=== PATIENT | female | born 1975 | race Hispanic/Latino ===

== ENCOUNTER 2024-07-08 14:41 | Emergency (ER) | payer SELFPAY ==
--- NOTE | ~2024-07-08 | US_ITS ---
US abdomen limited DATE: 07/08/2024 17:12 INDICATION: Right upper quadrant abdominal pain radiating to back TECHNIQUE: Real-time imaging of the liver, pancreas, gallbladder COMPARISON: None FINDINGS: No hepatic or pancreatic space-occupying mass lesion. Normal hepatopedal portal venous flow direction. No gallstones or gallbladder wall thickening or pericholecystic fluid collection. Negative sonographi c Fischer sign. The common bile duct measures 3.3 mm, normal. IMPRESSION: Negative Reviewed, dictated and finalized at [facility] Reviewed, dictated and finalized at [facility]. IMPRESSION: Negative
[2024-07-08 14:43] VITALS: BP 146/54; PULSE 95; RESP 17; TEMP 36.3; O2SAT 100
[2024-07-08 15:03] LABS: BEDSIDEPREGUCG Negative (Negative)
[2024-07-08 15:07] LABS: Basophils Percent Auto 0.3 % (0.2-1.2); Eosinophils Absolute Auto 0.3 K/mm3 (0-0.3); Eosinophils Percent Auto 3.1 % (0-4.4); Hematocrit 29.2 % (37.0-47.0); Hemoglobin 7.5 g/dL (12.0-15.0); Immature Granulocyte Absolute 0.05 K/mm3 (0.00-0.031); Immature Granulocyte Percent A 0.6 % (0-0.5); Immature Platelet Fraction Pct 7.6 % (0.9-11.2); Lymphocytes Absolute Auto 1.97 K/mm3 (0.9-3.2); Lymphocytes Percent Auto 22.5 % (18.3-44.2); Mean Corpuscular HGB Conc 25.7 g/dl (32-36); Mean Corpuscular Hemoglobin 17.2 pg (26-34); Mean Platelet Volume 10.7 fl (7.4-10.4); Monocytes Absolute Auto 0.6 K/mm3 (0.1-0.6); Monocytes Percent Auto 6.8 % (2.6-8.5); Neutrophils Absolute Auto 5.8 K/mm3 (1.3-6.7); Neutrophils Percent Auto 66.7 % (45.5-73.1); Nucleated Red Blood Cells Perc 0.2 % (0.0-0.2); Platelet Count Result 215 k/mm3 (150-375); Red Blood Count 4.36 M/mm3 (4.2-5.4); Red Cell Distribution Width 19.9 % (11.5-14.5); White Blood Count 8.8 K/mm3 (4.5-10.0)
[2024-07-08 15:09] LABS: Add Urine Microscopic? NO; Appearance Urine Clear (Clear); Bilirubin Urine Negative (Negative); Blood Urine Negative (Negative); Color Urine Yellow (Yellow); Glucose Urine UA Negative (Negative); Ketones Urine Negative (Negative); Leukocyte Esterase Ur Negative LEU/UL (Negative); Nitrate Urine Negative (Negative); Protein Urine Negative (Negative); Specific Grav Ur 1.013 (1.001-1.035); Urobilinogen Urine 0.2 mg/dL (<2.0)
[2024-07-08 15:20] LABS: Alanine Aminotransferase 22 U/L (6-35); Albumin Level 4.4 g/dL (3.5-5.1); Alkaline Phosphatase 70 U/L (38-126); Anion Gap 13 mmol/L (4-12); Aspartate Amino Transferase 31 U/L (14-36); Bilirubin,Total 0.8 mg/dL (0.2-1.3); Blood Urea Nitrogen 7 mg/dL (7-17); Calcium 8.7 mg/dL (8.4-10.2); Carbon Dioxide 22 mmol/L (22-30); Chloride 102 mmol/L (98-107); Estimated Glomerular Filt Rate > 60; Glucose 125 mg/dL (65-110); Lipase 70 U/L (23-300); Potassium 3.8 mmol/L (3.4-5.0); Sodium 137 mmol/L (137-145)
[2024-07-08 15:30] LABS: Anisocytosis 2+; Microcytosis 2+ (NORMAL); Platelet Estimate Adequate (Adequate); Schistocytes None Seen
--- NOTE | 2024-07-08 16:42 | ED.ABDPAIN ---
HPI - Abdominal Pain General Chief Complaint: Abdominal Pain Stated Complaint: right flank pain Time Seen by Provider: 07/08/24 16:36 Source: patient Mode of arrival: ambulatory Limitations: no limitations History of Present Illness HPI narrative: patient presents with complaint of right upper quadrant pain radiating to her back/right flank. She denies any nausea or vomiting. Symptoms have been present Wednesday. She notes that they are worse with spicy food or fried food. She has a history of a knee which has never required blood transfusions but for which she had previously received iron infusions. Last bowel movement was this morning she denies any diarrhea bleeding, or constipation. She denies any vaginal bleeding other than her last menstrual period which occurred June 20, 2024. (only 5 living children currently as one at 2 years old due to heart issue). States she had 2 of her children at 7 1/2 mos gestational age and the other at 8 months gestational age. Related Data Allergies Allergy/AdvReac Type Severity Reaction Status Date / Time No Known Allergies Allergy Verified 07/08/24 14:45 [facility] Past Medical History Medical History (Updated 07/09/24 @ 09:11 by Marie Manzanares MD) Grand multipara 6 births, 5 living children Multigravida 8 Family History Family History Unknown , at 2 years old Cardiac anomaly, congenital Exam Narrative: GENERAL: Well-appearing, well-nourished, and in no acute distress. HEAD: Normocephalic, atraumatic. EYES: Non injected, non icteric ENT: Nares clear, no rhinorrhea or epistaxis. NECK: Supple. CHEST: Speaking in full sentences. No respiratory distress. HEART: Regular rate and rhythm. . ABDOMEN: Soft, nondistended. No tenderness to palpation. No rigidity or guarding. Not peritoneal. Fischer sign negative. EXTREMITIES: Normal range of motion. No lower extremity edema. SKIN: Warm, dry, no rash. NEURO: No focal deficits. Alert and oriented x3. PSYCH: Normal mood and affect. Course Vital Signs Vital signs: Vital Signs Temperature 97.4 F L 07/08/24 14:43 Pulse Rate 95 07/08/24 14:43 Respiratory Rate 17 07/08/24 14:43 Blood Pressure 146/54 H 07/08/24 14:43 Pulse Oximetry 100 07/08/24 14:43 Oxygen Delivery Room Air 07/08/24 14:43 Temperature 98.3 F 07/08/24 19:56 Pulse Rate 99 07/08/24 19:56 Respiratory Rate 18 07/08/24 19:56 Blood Pressure 125/60 07/08/24 19:56 Pulse Oximetry 100 07/08/24 19:56 Oxygen Delivery Room Air 07/08/24 14:43 MDM - Abdominal Pain MDM Narrative Medical decision making narrative: Patient presents with right upper quadrant pain since Wednesday that radiates to her back/right flank. In the emergency department she is afebrile with vital signs notable mildly elevated systolic and mildly decreased diastolic blood pressure however acceptable. test negative. Microcytic anemia, no prior for comparison although she does state she has a history of anemia requiring iron infusions. Received notification from nurse that patient is pain free. Will discharge. workup had otherwise been unremarkable. Symptoms suggest either gastritis or biliary colic. Differential Diagnosis Differential diagnosis: Likely abdominal pain, calculus of kidney, constipation, endometriosis, pancreatitis and other ( Biliary etiology, gastritis, GERD) Lab Data Attestation: I reviewed the patient's lab results. 07/08/24 14:50 07/08/24 14:50 Labs: Lab Results 07/08/24 07/08/24 07/08/24 Range/Units 14:50 14:59 15:01 WBC 8.8 (4.5-10.0) K/mm3 RBC 4.36 (4.2-5.4) M/mm3 Hgb 7.5 L (12.0-15.0) g/dL Hct 29.2 L (37.0-47.0) % MCV 67.0 L (80-100) fl MCH 17.2 L (26-34) pg MCHC 25.7 L (32-36) g/dl RDW 19.9 H (11.5-14.5) % Plt Count 215 (150-375) k/mm3 MPV 10.7 H (
[2024-07-08 16:45] VITALS: BP 147/76; PULSE 108; RESP 20; O2SAT 100
[2024-07-08 16:46] VITALS: BP 152/72; PULSE 108; RESP 15; O2SAT 99
[2024-07-08] MEDS: SODIUM CHLORIDE 0.9% IV 1,000 ML 999 ML IV CONT (17:04)
[2024-07-08 17:31] VITALS: BP 129/56; PULSE 102; RESP 17; O2SAT 100
[2024-07-08 19:22] VITALS: BP 132/64; PULSE 102; RESP 19; O2SAT 99
[2024-07-08] MEDS: FAMOTIDINE 20 MG/2 ML VIAL IV PUSH (19:34)
[2024-07-08 19:56] VITALS: BP 125/60; PULSE 99; RESP 18; TEMP 36.8; O2SAT 100
== END 2024-07-08 19:58 | disposition home or self-care (01) ==
PROVIDERS: Student in an Organized Health Care Education/Training Program; Emergency Provider Student in an Organized Health Care Education/Training Program
DX: R10.11 Right upper quadrant pain (principal); D50.9 Iron deficiency anemia, unspecified
CPT/HCPCS: 36415; 76705; 80053; 81003; 81025; 83690; 85025; 85055; 96361; 96374; 99284; J7030

== ENCOUNTER 2025-08-03 14:30 | Emergency (ER) | payer SELFPAY ==
--- NOTE | ~2025-08-03 | XR_ITS ---
EXAMINATION: XR chest 2V DATE: 08/03/2025 14:55 INDICATION: Shortness of breath, mid chest pain and weakness TECHNIQUE: PA and lateral views of the chest were obtained. COMPARISON: None FINDINGS: The lungs are clear with no focal airspace opacities, pulmonary edema, pleural effusion or pneumothorax. The cardiomediastinal silhouette is normal. Mild thoracic spondylosis. IMPRESSION: 1. No acute cardiopulmonary disease. Reviewed, dictated and finalized at location A.
--- OUTSIDE RECORDS SUMMARY | 2025-08-03 09:00 | XMS_ITS | Encounter Summary ---
Author Organization [employer] Address [address], [place] [address] Phone Care Team Providers Care Extrusion Operator Name Role Phone Temo Waterman MD Primary Care Provider [phone]- [phone] Encounter Details Date Type Department Care Team (Late st Contact Info) Description 08/03/2025 9:00 AM CDT Office Visit [facility] Medicine [address] [place] [address] Temo Waterman MD [address] [place] [address] Routine general medical examination at a health care facility (Primary Dx) Social History Tobacco Use Types Packs/Day Years Used Date Smoking Tobacco: Never Smokeless Tobacco: Never Alcohol Use Standard Drinks/Week Comments Never 0 (1 standard drink = 0.6 oz pur e alcohol) PHQ-9 Answer Date Recorded Patient Health Questionnaire-9 Score 8 04/27/2025 Intimate Partner Violence Answer Date R ecorded Do you feel physically and e motionally safe where you currently live? Yes 01/23/2025 In the past year, have you b een afraid of your partner or ex-partner? No 01/23/2025 Social Connections Answer Date Recorded How often do you seek or roderick k to people that you care about and feel close to? (For example: talking to friends on the phone, visiting friends or family, going to orthodox or club meetings) 5 or more times a week 01/23/2025 Financial Resource Strain Answer Date R ecorded Income % of Federal Poverty Line (FPL) 100% or b elow 01/23/2025 What is the highest level of school that you have finished? Less than high school degree 01/23/2025 What is your current work situation? Unemployed 01/23/2025 What is your main insurance? None/uninsured Unable to get: Utilities Yes 025 Unable to get: Medicine or [facility] [place] [facility] (Medical, Dental, Mental Health, Vision) No 01/23/2025 Unable to get: Phone No 01/23/2025 Unable to get: Clothing No 01/24/20 Unable to get: career center advisor No 2024 Unable to get: Other No 01/23/2025 Stress Answer Date Recorded Stress is when someone feels tense, nervous, anxious or can't sleep at night because their mind is troubled. How stressed are you? (If risk for stress identified, consider performing ALYCE-7 in Screenings activity) Not at all 03/08/2025 Food Insecurity Answer Date Recorded Unable to get: Food No 01/23/2025 Transportation Needs Answer Date Record ed Has lack of transportation k ept you from medical appointments, meetings, work, or from getting things needed for daily living? Check all that apply. No 01/23/2025 Housing Stability Answer Date Recorded What is your housing situation today? I have ricarda sing 01/23/2025 Are you worried about losing your housing? No 01/23/2025 Comments Unknown Sex and Gender Information Value Date Recorded Sex Assigned at Female 12/04/2022 12:10 PM EST Legal Sex Female 4:03 PM EDT Gender Identity Female 08/02/2022 4:03 PM EDT Sexual Orientation Straight 08/02/2022 4: 03 PM EDT documented as of this encounter Last Filed Vital Signs Vital Sign Reading Time Taken Comments Blood Pressure 131/75 08/03/2025 9:37 AM CDT Pulse 84 08/03/2025 9:37 AM CDT Temperature 36.5 C (97.7 F) 08/03/2025 9:37 AM CDT Respiratory Rate - - Oxygen Saturation 100% 08/03/2025 9:37 AM CDT Inhaled Oxygen Concentration - - Weight 83.3 kg (183 lb 9.6 oz) 08/03/2025 9:37 A M CDT Height 149.9 cm (4' 11) 08/03/2025 9:37 AM CDT Body Mass Index 37.08 08/03/2025 9:37 AM CDT documented in this encounter Plan of Treatment Upcoming Encounters Date Type Department Care Team (Late st Contact Info) Description 08/22/2025 8:30 AM CDT Office Visit [facility] Family Medicine [address] [place] [address] Temo Waterman MD [address] [place], [place] [id number] 09/12/2025 3:30 PM OUTDOOR POWER EQUIPMENT MECHANIC Office Visit [facility] [address] [place] [address] Israel Medina Jr., MD [address] [place], [place] [id number] documented as of this encounter Procedures Procedure Name Priority Date/Time Associated Diagnosis Comments POCT HEMOGLOBIN A1C Routine 08/03/2025 9 :39 AM CDT Routine general medical examination at a health care facility POCT HEMOGLOBIN Routine 08/03/2025 9:39 AM CDT Routine general medical examination at a health care facility documented in this encounter Results * POCT Hemoglobin (08/03/2025 9:39 AM CDT) Hemoglobin, Capillary 6.0 11.7 - 15.5 g/dL Blood 08/03/2025 9:39 AM CDT Kateryna Jacobo MD POINT OF CARE TEST ENTER /EDIT ORDERABLES Final Result * POCT HEMOGLOBIN A1C Manually Resulted (08/03/2025 9:39 AM CDT) HEMOGLOBIN A1C 4.8 <=5.8 % Blood Venous blood specimen / Unknown 08/03/2025 9:39 AM CDT aKteryna Jacobo MD POINT OF CARE TEST ENTER /EDIT ORDERABLES Final Result documented in this encounter Visit Diagnoses Diagnosis Routine general medical examination at a health care facility- Primary documented in this encounter Additional Health Concerns Assessment Noted Time PHQ-9 Depression Total Score: 8 04/27/20 9:28 AM EDT documented as of this encounter Care Teams Extrusion Operator Relationship Specialty Start Date End Date Temo Waterman MD [address] [place] [address] PCP - General 04/30/25 documented as of this encounter
--- OUTSIDE RECORDS SUMMARY | 2025-08-03 09:00 | XMS_ITS | Encounter Summary ---
Author Organization [employer] Address [address], [place] [address] Phone Care Team Providers Care Window Shade Cutter Name Role Phone Temo Waterman MD Primary Care Provider [phone]- [phone] Encounter Details Date Type Department Care Team (Late st Contact Info) Description 08/03/2025 9:00 AM CDT Office Visit [facility] Medicine [address] [place] [address] Temo Waterman MD [address] [place] [address] Routine general medical examination at [...] phone, visiting friends or family, going to yarsanism or club meetings) 5 or more times [...] 025 Unable to get: Medicine or [place] [facility] (Medical, Dental, Mental Health, Vision) No 01/23/2025 Unable to get: Phone No 01/23/2025 Unable to get: Clothing No 01/24/20 Unable to get: medicare nurse No 2024 Unable to get: Other No [...] Description 08/22/2025 8:30 AM CDT Office Visit [facility] Family Medicine [address] [place] [address] Temo Waterman MD [address] [place], [place] [phone] 09/12/2025 3:30 PM TEACHER SPECIALIST Office Visit [facility] [address] [place] [address] Israel Medina Jr., MD [address] [place], [place] [phone] documented as of this encounter Procedures Procedure [...] specimen / Unknown 08/03/2025 9:39 AM CDT Kateryna Jacobo MD POINT OF CARE TEST ENTER /EDIT ORDERABLES Final Result documented in this encounter Visit Diagnoses Diagnosis Routine general medical examination at a health care facility- Primary documented in this encounter Additional Health Concerns Assessment Noted Time PHQ-9 Depression Total Score: 8 04/27/20 9:28 AM EDT documented as of this encounter Care Teams Window Shade Cutter Relationship Specialty Start Date End Date Temo Waterman MD [address] [place] [address] PCP - General 04/30/25 documented as of this encounter
[2025-08-03 14:31] VITALS: BP 142/58; PULSE 91; RESP 18; TEMP 36.4; O2SAT 100
--- OUTSIDE RECORDS SUMMARY | 2025-08-03 14:33 | XMS_ITS | Encounter Summary ---
Author Organization [employer] Address [address] [address] Phone Care Team Providers Care Painter And Paperhanger Apprentice Name Role Phone Temo Waterman MD Primary Care Provider [phone] Encounter Details Date Type Department Care Team (Latest Contact Info) Description 08/03/2025 Travel Social History Tobacco Use Types Packs/Day Years [...] phone, visiting friends or family, going to zoroastrianism or club meetings) 5 or more times [...] 025 Unable to get: Medicine or [place] [facility] (Medical, Dental, Mental Health, Vision) No 01/23/2025 Unable to get: Phone No 01/23/2025 Unable to get: Clothing No 01/24/20 Unable to get: insurance healthcare representative No 2024 Unable to get: Other No [...] PM EDT documented as of this encounter Plan of Treatment Upcoming Encounters Date Type Department Care Team (Late st Contact Info) Description 08/22/2025 8:30 AM CDT Office Visit [facility] Family Medicine [address] [place] [address] Temo Waterman MD [address] [place] [address] 09/12/2025 3:30 PM SENIOR ENVIRONMENTAL TECHNICIAN Office Visit [facility] [address] Israel Medina Jr., MD [facility] [place], [place] [phone] documented as of this encounter Visit Diagnoses Not on filedocumented in this encounter Additional Health Concerns Assessment Noted Time PHQ-9 Depression Total Score: 8 04/27/20 25 9:28 AM EDT documented as of this encounter Care Teams Painter And Paperhanger Apprentice Relationship Specialty Start Date End Date Temo Waterman MD [address] [place] [address] PCP - General 04/30/25 documented as of this encounter
--- OUTSIDE RECORDS SUMMARY | 2025-08-03 14:33 | XMS_ITS | Encounter Summary ---
Author Organization [employer] Address [address], [place] [address] Phone Care Team Providers Care Dog Trainer Name Role Phone Temo Waterman MD Primary Care Provider [phone]- [phone] Reason for Visit * Reason Comments Med Refill Encounter Details Date Type Department Care Team (Late st Contact Info) Description 08/03/[address] [facility] Medicine [address] [place] [address] Shala Neves MD [address] [place] [address] Social History Tobacco Use Types Packs/Day Years [...] phone, visiting friends or family, going to rastafari or club meetings) 5 or more times [...] 025 Unable to get: Medicine or [facility] [place] [facility] (Medical, Dental, Mental Health, Vision) No 01/23/2025 Unable to get: Phone No 01/23/2025 Unable to get: Clothing No 01/24/20 Unable to get: pharmacy customer care specialist No 2024 Unable to get: Other No [...] Description 08/22/2025 8:30 AM CDT Office Visit [facility] Family Medicine [address] [facility] [place] [place] [id number] Temo Waterman MD [address] [place] [address] 09/12/2025 3:30 PM MIXING PLANT DUMPER Office Visit [facility] [address] [facility] [place] [place] [address] Israel Medina Jr., MD [address] [place] [address] documented as of this encounter Visit Diagnoses Not on filedocumented in this encounter Additional Health Concerns Assessment Noted Time PHQ-9 Depression Total Score: 8 04/27/20 9:28 AM EDT documented as of this encounter Care Teams Dog Trainer Relationship Specialty Start Date End Date Temo Waterman MD [address] [place] [address] PCP - General 04/30/25 documented as of this encounter
--- OUTSIDE RECORDS SUMMARY | 2025-08-03 14:33 | XMS_ITS | Clinical Summary ---
Author Organization [employer] Address [address] [place] [address] Phone Care Team Providers Care Shell Mold Bonder Name Role Phone Temo Waterman MD Primary Care Provider Allergies No known active allergies Medications COVID-19 Home Collection Test kitIndications:At increased risk of exposure to COVID-19 virus As directed 3 kit 4 Active famotidine (Pepcid) 20 MG tabletIndications:G astroesophageal reflux disease without esophagitis Take 1 tablet (20 mg) by mouth if needed in the morning and at bedtime for heartburn. 60 tablet 5 4 Active pantoprazole (ProtoNix) 40 MG EC tabletIndications:G astroesophageal reflux disease, unspecified whether esophagitis present Take 1 tablet (40 mg) by mouth in the morning. Do not crush, chew, or split. 30 tablet 1 5 Active iron polysaccharides (Poly-Iron 150) 150 MG capsuleIndications: Iron deficiency anemia due to chronic blood loss Take 1 capsule (150 mg) by mouth in the morning. 30 capsule 11 5 Active norethindrone (Aygestin) 5 MG tablet Take 1 tablet (5 mg) by mouth 2 times daily. 60 tablet 1 5 026 Active Diclofenac Sodium 1 % gel Apply 1 g topically if needed in the morning and at bedtime (elbow and shoulder pain). 120 g 1 5 Active Active Problems Problem Noted Date Diagnosed Date Intramural and subserous leiomyoma of uterus 04/ Essential hypertension 02/14/2024 Overview (02/14/2024): Elevated pressure 02/14/24. Assessment & Plan (05/15/2024 2:40 PM CDT): Bp at home has been normal on her home monitor. It rises when she is nervous Assessment & Plan (02/14/2024 4:30 PM CDT): Will get home pressures and consider treatment if high at home. She has a machine. Sciatica of left side 04/27/2023 Assessment & Plan (04/27/2023 9:54 AM CDT): Discussed diagnosis. Given sheet on back exercises. Anxiety and depression 09/08/2022 Assessment & Plan (09/08/2022 11:31 AM TOLL GATE TENDER): Seeing therapist at [facility]. Declines medication or bh at [facility]. Ovarian neoplasm 03/23/2022 Overview (08/27/2022): Note: pelvic ultrasound 03/05/22 [place] with 5.5 x 2.2 x 3.3. 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 Screening for condition 07/29/2021 Overview (08/03/2023): Mammogram normal on 01-06-2023 [facility] garcia. pap 04/2019. due 04/2022 Due for hepatitis B, flu, covid (declines) Assessment & Plan (07/17/2024 3:33 PM CDT): Declines vaccines Assessment & Plan (07/11/2024 3:15 PM CDT): Pap Declines vaccines Assessment & Plan (05/15/2024 2:42 PM CDT): Due for pap, mammogram Assessment & Plan (08/03/2023 10:21 AM CDT): Due for hepatitis B, flu, covid (declines for now) Contraceptive surveillance 03/01/2018 Overview (08/27/2022): Note: Unchanged - BTL. Liletta placed 03/01/2018 for heavy menses, expelled 06/28/18. Menorrhagia same over the past few years. 2021: sprintec did not help heavy menses Iron deficiency 12/30/2017 Overview (08/27/2022): Note: Unchanged - 2/2 heavy menses. Required iv iron 04/2022 Assessment & Plan (09/08/2022 11:22 AM TOLL GATE TENDER): hgb down to 8 on 09/08/22. Constipation 04/08/2017 Overview (08/27/2022): Note: Unchanged Disorder of esophagus 04/08/2017 Overview (08/27/2022): Note: Unchanged - pantoprazole caused stomach pains. Obesity 04/08/2017 Overview (08/27/2022): Note: Unchanged Resolved Problems Problem Noted Date Diagnosed Date Resolved Date Disease due to severe acute respiratory syndrome coronavirus 2 (SARS-CoV-2) 01/20/2022 11/0 06/2022 Overview (08/27/2022): Note: 11/2021 Coronary artery disease 06/10/201701/30 Overview (08/27/2022): Note: Unchanged - questionable NSTEMI. [facility] without obstructive disease. Troponin 1.35 but patient says that they never took her blood and that this was from a different patient. Cardiac cath showed no obstructive disease. 05/2017. Completed Plavix x 1 year. Patient believes that her blood in the ER was never actually taken to the lab and the elevated troponin was from a different patient. She has subsequently had similar problems reolved with antacid medication. SPECT stress test 03/20/22 [place] without evidence of AL or ischemia. EF 76%. Encounters Date Type Department Care Team Description 08/03/2025 9:00 AM CDT Office Visit [address] [phone] Temo Waterman MD Routine general medical examination at a health care facility (Primary Dx) 08/03/[address] [phone] Shala Neves MD 08/03/2025 Travel 06/04/[address] [phone] Quyen Hilario RN 06/04/[address] [phone] Other, Encounters Med Refill from Last 3 Months Immunizations Immunization Administration Dates Next Due Influenza, Unspecified 08/26/2017 Influenza, injectable, quadr ivalent, contains preservative 09/08/2021,07/02/2020,08/01/2019 Influenza, injectable, quadr ivalent, preservative free 09/08/2021 Influenza, intradermal, quad rivalent, preservative free, injectable 08/26/2017 TD (adult), 2 Lf tetanus tox oid, preservative free, adsorbed 07/02/2014 Tdap 10/01/2012 Family History Medical History Relation Name Comments Diabetes type II Maternal Grandmother Anxiety disorder Mother Osteoporosis Mother Relation Name Status Comments Maternal Grandmother Mother Social History Tobacco Use Types Packs/Day Years Used Date Smoking Tobacco: Never Smokeless Tobacco: Never Tobacco Cessation:Counseling Given: Not Answered Alcohol Use Standard Drinks/Week Comments Never 0 [...] phone, visiting friends or family, going to mu-ism or club meetings) 5 or more times [...] 025 Unable to get: Medicine or A or Health Care (Medical, Dental, Mental Health, Vision) No 01/23/2025 Unable to get: Phone No 01/23/2025 Unable to get: Clothing No 01/24/20 25 Unable to get: career discovery teacher No 2024 Unable to get: Other No [...] your housing situation today? I have ricarda jane 01/23/2025 Are you worried about losing your housing? No 01/23/2025 Comments Unknown Sex and Gender Information Value Date Recorded Sex Assigned at Female 12/04/2022 12:10 PM EST Legal Sex Female 4:03 PM EDT Gender Identity Female 08/02/2022 4:03 PM EDT Sexual Orientation Straight 08/02/2022 4: 03 PM EDT Last Filed Vital Signs Vital Sign Reading [...] Mass Index 37.08 08/03/2025 9:37 AM CDT Plan of Treatment Upcoming Encounters Date Type Department Care Team (Late st Contact Info) Description 08/22/2025 8:30 AM CDT Office Visit [facility] [address] [place] [phone] Temo Waterman MD [address] [place], [place] [id number] 09/12/2025 3:30 PM TOLL GATE TENDER Office Visit [facility] [address] [place] [phone] Israel Medina Jr., MD [address] [place] [address] Health Maintenance Due Date Last Done Comments MMR Vaccines (1 of 1 - Standard series) 1978 Hepatitis B Screening 1995 Hepatitis C Screening 1995 Well Adult Exam (Age 18+ Annual Physical) 1995 Hepatitis B Vaccines (1 of 3 - 19+ 3-dose series) 02/12/1996 DTaP/Tdap/Td Vaccines (3 - Td or Tdap) 12/30/2014 07/02/2014, 10/01/2012 Pap Smear 04/29/2020 04/29/2017 CT Colonography 2022 Colonoscopy 2022 FIT 2022 FOBT 2022 Sigmoidoscopy 2022 Cervical Cancer Screening 04/29/2022 HPV/Cotest 04/29/2022 04/29/2017 Mammogram 01/07/2024 01/06/2023, 03/0 06/2023, 01/06/2023, Additional history exists COVID-19 Vaccine ( - season) 2025 Influenza Vaccine (#1) 2025 , 09/08/2021, 07/02/2020, Additional history exists Zoster Vaccines (1 of 2) 2027 Colorectal Cancer Screening 02/27/2028 FIT-DNA 02/27/2028 02/26/2025, 02/26/2025 Diabetes Screening 08/03/2028 08/03/2025, 0 01/09/2025, 05/15/2024, Additional history exists HIV Screening Completed 02/14/2024 HIB Vaccines Aged Out No longer eligi ble based on patient's age to complete this topic HPV Vaccines (No Doses Required) Completed Hepatitis A Vaccines Aged Out No long er eligible based on patient's age to complete this topic IPV Vaccines Aged Out No longer eligi ble based on patient's age to complete this topic Meningococcal B Vaccine Aged Out No l onger eligible based on patient's age to complete this topic Meningococcal Vaccine Aged Out No gurwinder imta eligible based on patient's age to complete this topic Pneumococcal Vaccine: 0-49 Years Aged Out No longer eligible based on patient's age to complete this topic Rotavirus Vaccines Aged Out No longer eligible based on patient's age to complete this topic Procedures Procedure Name Priority Date/Time Associated Diagnosis Comments POCT HEMOGLOBIN Routine 08/03/2025 9:39 AM CDT Routine general medical examination at a health care facility POCT HEMOGLOBIN A1C Routine 08/03/2025 9 :39 AM CDT Routine general medical examination at a health care facility LAB COLOGUARD COLON CANCER SCREEN Routine 02/26/2025 12:10 PM CDT Encounter for screening for malignant neoplasm of colon POCT RAPID HIV Routine 02/14/2024 3:35 PM CDT Screening for HIV (human immunodeficiency virus) HM MAMMOGRAPHY Routine 01/07/2021 11:00 PM TOLL GATE TENDER HPV RNA, HR E6/E7, TMA Routine 04/29/2017 12:17 PM CDT THINPREP TIS PAP Routine 04/29/2017 12:1 7 PM CDT from Last 3 Months or Most Recently Relevant to Health Maintenance Results * POCT HEMOGLOBIN A1C Manually Resulted (08/03/2025 9:39 AM CDT) HEMOGLOBIN A1C 4.8 <=5.8 % Blood Venous blood specimen / Unknown 08/03/2025 9:39 AM CDT Kateryna Jacobo MD POINT OF CARE TEST ENTER /EDIT ORDERABLES Final Result * POCT Hemoglobin (08/03/2025 9:39 AM CDT) Hemoglobin, Capillary 6.0 11.7 - 15.5 g/dL Blood 08/03/2025 9:39 AM CDT us Kateryna Jacobo MD POINT OF CARE TEST ENTER /EDIT ORDERABLES Final Result * Cologuard?? colon cancer screening (02/26/2025 12:10 PM CDT) COLOGUARD RESULT Negative Negative 03/02/20 5:43 AM CDT [employer] [facility] (CLIA #:[id number]) Comment: The Cologuard (TM) test was performed on this specimen. NEGATIVE TEST RESULT. A negative Cologuard result indicates a low likelihood that a colorectal cancer (CRC) or advanced adenoma (adenomatous polyps with more advanced pre-malignant features) is present. The chance that a person with a negative Cologuard test has a colorectal cancer is less than 1 in 1500 (negative predictive value >99.9%) or has an advanced adenoma is less than 5.3% (negative predictive value 94.7%). These data are based on a prospective cross-sectional study of 10,000 individuals at average risk for colorectal cancer who were screened with both Cologuard and colonoscopy. (Elliot Mims. et al, N Engl J Med 2014;370(14):1286- 1297) The normal value (reference range) for this assay is negative. COLOGUARD RE-SCREENING RECOMMENDATION: Periodic colorectal cancer screening is an important part of preventive healthcare for asymptomatic individuals at average risk for colorectal cancer. Following a negative Cologuard result, the [employer] and U.S. Multi-Society Task Force screening guidelines recommend a Cologuard re-screening interval of 3 years. References: [employer] Guideline for Colorectal Cancer Screening: https://www.cancer.org/cancer/ynsgp-olxmxk-rnjaaw/occyypyzv-jaiemamup-ekzsavn/ac s-rec ommendations.html.; Jayden BARILLAS, Isidoro CHARLES, Monica BeckK, Colorectal Cancer Screening: Recommendations for Physicians and Patients from the U.S. Multi-Society Task Force on Colorectal Cancer Screening , Am J Gastroenterology 2017; 112:6803-2294. TEST DESCRIPTION: Composite algorithmic analysis of stool DNA-biomarkers with hemoglobin immunoassay. Quantitative values of individual biomarkers are not reportable and are not associated with individual biomarker result reference ranges. Cologuard is intended for colorectal cancer screening of adults of either sex, 45 years or older, who are at average-risk for colorectal cancer (CRC). Cologuard has been approved for use by the U.S. FDA. The performance of Cologuard was established in a cross sectional study of average-risk adults aged 50-84. Cologuard performance in patients ages 45 to 49 years was estimated by sub-group analysis of near-age groups. Colonoscopies performed for a positive result may find as the most clinically significant lesion: colorectal cancer [4.0%], advanced adenoma (including sessile serrated polyps greater than or equal to 1cm diameter) [20%] or non- advanced adenoma [31%]; or no colorectal neoplasia [45%]. These estimates are derived from a prospective cross-sectional screening study of 10,000 individuals at average risk for colorectal cancer who were screened with both Cologuard and colonoscopy. (Elliot Bassett et al, N Engl J Med 2014;370(14):4806-8154.) Cologuard may produce a false negative or false positive result (no colorectal cancer or precancerous polyp present at colonoscopy follow up). A negative Cologuard test result does not guarantee the absence of CRC or advanced adenoma (pre-cancer). The current Cologuard screening interval is every 3 years. ([employer] [employer] and U.S. Multi-Society Task Force). Cologuard performance data in a 10,000 patient pivotal study using colonoscopy as the reference method can be accessed at the following location: www.[employer]/results. Additional description of the Cologuard test process, warnings and precautions can be found at www.cologuard.com. Stool 02/26/2025 12:1 0 PM CDT 02/27/2025 9:24 AM CDT China Aguirre MD LAB MOLECULAR DIAGNOSTI CS ORDERABLES Final Result [employer] (CLIA #:[id number]) [address] [place] [address], * POCT Rapid HIV (02/14/2024 3:35 PM CDT) Rapid HIV 1X2 Nonreactive Non-React aditi Internal Control Valid Blood 02/14/2024 3:35 PM CDT Blake Francois MD POINT OF CARE TEST ENTER/ED IT ORDERABLES Final Result * Hm Mammography (01/07/2021 11:00 PM TOLL GATE TENDER) Anatomical Region Laterality Modality Other 01/07/2021 11:0 0 PM TOLL GATE TENDER 01/07/2021 11:00 PM TOLL GATE TENDER Narrative 01/07/2021 11:00 PM TOLL GATE TENDER Access [employer] Patient Window in the Media Tab above to review report after 11/01/2018. For reports prior to 11/01/2018, reference [facility] Procedure [facility] Con[facility] - 11/10/2022 Access [employer] Patient Window in the Media Tab above to review report after11/01/2018. For reports prior to 11/01/2018, reference [facility] Conversion Provider HEALTH MAINTENANCE F inal Result * HPV RNA, HR E6/E7, TMA (04/29/2017 12:17 PM CDT) HPV RNA, HR E6/E7, TMA Not Detected Not Detected [facility] Comment:This test was perfor med using the APTIMA HPV Assay ([employer] This assay detects E6/E7 viral messenger RNA (mRNA) from 14 high-risk HPV types (16,18,31,33,35,39,45,51,52,56,58,59,66,68). 04/29/2017 12:1 7 PM CDT 04/29/2017 12:17 PM CDT [facility] Provider LAB MICROBIOLOGY - G ENERAL ORDERABLES Final Result [facility] * THINPREP TIS PAP (04/29/2017 12:17 PM CDT) STATEMENT OF ADEQUACY [facility] Comment:Satisfactory for roberto luation. Endocervical/transformation zone component present. STATEMENT OF ADEQUACY [facility] Comment:Satisfactory for roberto luation. Endocervical/transformation zone component present. PAP SMEAR [facility] Comment:Negative for intraep ithelial lesion or malignancy. PAP SMEAR [facility] Comment:Negative for intraep ithelial lesion or malignancy. COMMENT [facility] Comment:This Pap test has be en evaluated with computer assisted technology. 04/29/2017 12:1 7 PM CDT 04/29/2017 12:17 PM CDT [facility] Conversion Provider LAB MICROBIOLOGY - G ENERAL ORDERABLES Final Result [facility] from Last 3 Months or Most Recently Relevant to Health Maintenance Care Teams Shell Mold Bonder Relationship Specialty Start Date End Date Temo Waterman MD [address] [place] [address] PCP - General 04/30/25
--- OUTSIDE RECORDS SUMMARY | 2025-08-03 14:33 | XMS_ITS | Clinical Summary ---
Author Organization [facility] Address [address] [place] [address] Care Team Providers Care Head Charrer Name Role Phone Unavailable Primary Care Provider Unavailabl e Source Comments [facility],non-owned Affiliates and Associated Physician Practices is amultiple site organization consisting of ambulatory clinics and hospital sitesin [place], [place], [place] and [place]. This disclosure is being madepursuant to the Care Everywhere program and may not contain all information available regarding this patient. Last updated 18.[facility] Allergies No known active allergies Medications * Be aware that medications may not be up to date on this document. Alwaysverify current medications with the patient. aspirin (ASPIRIN) 81 MG chew tablet Take 81 mg by mouth DAILY. 100 tablet 3 7 Active Additional Information Patient not taking.Reported on 07/08/2023 carvedilol (COREG) 3.125 MG tablet Take 3.125 mg by mouth 2 times daily with morning and evening meal. 60 tablet 3 7 Active Additional Information Patient not taking.Reported on 07/08/2023 atorvastatin (LIPITOR) 80 MG tablet Take 80 mg by mouth. 30 tablet 3 7 Active Additional Information Patient not taking.Reported on 07/08/2023 ferrous sulfate 325 (65 FE) MG tablet Take 1 tablet by mouth DAILY. 30 tablet 3 7 Active esomeprazole (NEXIUM) 20 MG capsule Take 1 capsule by mouth daily before breakfast 30 capsule 9 Active Additional Information Patient not taking.Reported on 03/04/2022 ferrous gluconate 324 (37.5 Fe) MG Take 1 (one) tablet by mouth 3 times daily with meals 90 tablet 1 Active cyclobenzaprine (FLEXERIL) 10 MG tablet Take 1 (one) tablet by mouth 3 times daily as needed for Muscle Spasms 30 tablet 1 Active Additional Information Patient not taking.Reported on 03/04/2022 polyethylene glycol (Gavilyte-C) 240 g solution Drink half of prep solution at 5pm the night before colonoscopy. Finish the prep at 5am the day of test. 4000 mL 3 Active Active Problems Problem Noted Date Diagnosed Date Iron deficiency anemia 03/04/2022 Assessment & Plan (03/05/2022 11:36 AM CDT): Assessment: Hx Iron deficiency anemia. Last Hgb on 03/02 7.1. Patient prescribed 300mg Iron every other day, however, patient denies taking it 2/2 abdominal pain. Patient endorses dizziness 2/2 anemia at baseline. -Tranfuse Hgb <7 -Venofer today 2/2 iron deficiency anemia -Recheck H&H s/p Venofer -PT/INR wnl -Trend CBC Anxiety 03/04/2022 Assessment & Plan (03/04/2022 5:19 PM CDT): Assessment: Patient has hx anxiety. Prescribed Xanax 0.25mg qdPRN. Patient states she is anxious on admission. However, she has not taken any medication today. Does not take often. -Cont. Home Xanax 0.25mg PRN SIRS (systemic inflammatory response syndrome) 0 03/04/2022 Assessment & Plan (03/05/2022 11:37 AM CDT): Assessment: 47yo female w/ fever (tmax 102.1), pleuritic chest pain, and tachycardia in PCP office on 03/02. CXR obtained w/ concerns of RUL PNA. 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 Patient endorsed persistent weakness at that time. Patient admitted for further workup and management of likely bacterial PNA. Upon admission, patient meets SIRS criteria, likely in the setting of bacterial PNA, 2/2 tachycardia, WBC 12.8 and suspected infection. Back pain c/w RUL PNA on exam. Ddx includes CAP, PE, TB, Viral PNA, NSTEMI, Anxiety. -Cont. Azithromycin + Rocphin for CAP tx -S/p NS Bolus x1 2/2 tachycardia -Consider additional bolus if patient continues to be tachycardic -CT chest c/w RUL PNA -Incentive spirometry -Blood Cx pending, cont. To f/u -Procalcitonin wnl -Quantiferon gold pending, cont. To f/u -Vitals q4 -Pulse ox Atherosclerotic heart diseas e of [place] coronary artery without angina pectoris 06/15/2017 Non-ST elevation (NSTEMI) myocardial infarction 05/04/2017 Resolved Problems Problem Noted Date Diagnosed Date Resolved Date Pneumonia due to infectious organism, unspecified laterality, unspecified part of lung 03/04/2022 03/04/2022 Assessment & Plan (03/04/2022 5:15 PM CDT): Assessment: 47yo female w/ fever (tmax 102.1), pleuritic chest pain, and tachycardia in PCP office on 03/02. CXR obtained w/ concerns of RUL PNA. 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 Patient endorsed persistent weakness at that time. Patient admitted for further workup and management of likely bacterial PNA. Back pain c/w RUL PNA on exam. Ddx includes CAP, PE, TB, Viral PNA, NSTEMI, Anxiety. -Admit to Family Medicine, Dr. Grewal -Start Azithromycin + Rocphin for CAP tx -NS Bolus given 2/2 tachycardia -CT chest -Incentive spirometry -Blood Cx -Procalcitonin -Quantiferon gold -Vitals q4 -Pulse ox Family History Medical History Relation Name Comments Diabetes - Type 2 Mother Relation Name Status Comments Mother Social History Tobacco Use Types Packs/Day Years Used Date Smoking Tobacco: Never Smokeless Tobacco: Never Alcohol Use Standard Drinks/Week Comments Not Currently 0 (1 standard drink = 0.6 oz pure alcohol) once every 2 months at a democrat PHQ-2 Answer Date Recorded Patient Health Questionnaire-2 Score 1 07/08/2023 Comments No Sex and Gender Information Value Date Recorded Sex Assigned at Not on file 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 Gender Identity Not on file Sexual Orientation Not on file Last Filed Vital Signs Vital Sign Reading Time Taken Comments Blood Pressure 150/63 07/08/2023 12:55 PM CDT Pulse 82 07/08/2023 12:55 PM CDT Temperature 36.4 C (97.5 F) 07/08/2023 12:55 PM CDT Respiratory Rate 16 07/08/2023 12:55 PM CDT Oxygen Saturation 99% 01/19/2023 11:31 PM CDT Inhaled Oxygen Concentration - - Weight 76.2 kg (168 lb) 03/04/2022 6:08 PM CDT Height 147.3 cm (4' 10) 03/04/2022 6:08 PM CDT per Pt Body Mass Index 35.11 03/04/2022 6:08 PM CDT Plan of Treatment Health Maintenance Due Date Last Done Comments COLOGUARD (AGES 45-75) - COLON CA SCREENING 1977 COLON MONITORING 1977 COLONOSCOPY - COLON CA SCREENING 1977 CT COLONOGRAPHY - COLON CA SCREENING 1977 Colorectal Cancer Screening 1977 FIT - COLON CA SCREENING 1977 FLEX SIG - COLON CA SCREENING 1977 HIV SCREENING 02/12/1992 HEPATITIS C SCREENING 02/07/1995 DTAP/TDAP/TD VACCINES (1 - Tdap) 02/12/1996 HEPATITIS B VACCINE (1 of 3 - 19+ 3-dose series) 02/12/1996 PAP SMEAR 1998 DEPRESSION SCREENING 11/01/2024 07/08/2023 MAMMOGRAM 01/06/2025 01/06/2023, 12/30, 02/24/2019 COVID-19 VACCINE ( - season) 2025 INFLUENZA VACCINE (#1) 2025 1, 07/02/2020, 08/01/2019, Additional history exists SCREENING FOR DIABETES 01/19/2026 3, 03/05/2022, 03/04/2022, Additional history exists ZOSTER VACCINE (1 of 2) 2027 HIB VACCINE Aged Out No longer eligi ble based on patient's age to complete this topic HPV VACCINE Aged Out No longer eligi ble based on patient's age to complete this topic MENINGOCOCCAL (Group B) VACCINE SHARED DECISION-MAKING Aged Out No longer eligible based on patient's age to complete this topic MENINGOCOCCAL GROUPS A/C/Y/W VACCINE Aged Out No longer eligible based on patient's age to complete this topic PNEUMOCOCCAL VACCINE Aged Out No long er eligible based on patient's age to complete this topic Procedures Procedure Name Priority Date/Time Associated Diagnosis Comments COMPREHENSIVE METABOLIC PANEL STAT 01/19/2023 3:50 PM CDT from Last 3 Months or Most Recently Relevant to Health Maintenance Results * (ABNORMAL) COMPREHENSIVE METABOLIC PANEL (01/19/2023 3:50 PM CDT) Glucose 128(H) 70 - 105 mg/dL 01/19/2023 4:17 PM CDT [facility] Sodium 140 136 - 145 mmol/L 01/19/2023 4:17 PM CDT [facility] Potassium 3.9 3.5 - 5.1 mmol/L 01/19/2023 4:17 PM CDT [facility] Chloride 105 98 - 107 mmol/L 01/19/2023 4:17 PM CDT [facility] CO2 25 23 - 31 mmol/L 01/19/2023 4:17 PM CDT [facility] Calcium 8.8 8.4 - 10.4 mg/dL 01/19/2023 4:17 PM CDT [facility] Anion Gap 10 8 - 18 mmol/L 01/19/2023 4:17 PM CDT [facility] BUN 9 7 - 18.7 mg/dL 01/19/2023 4:17 PM CDT [facility] Creatinine 0.61 0.57 - 1.11 mg/dL 01/19/2023 4:17 PM CDT [facility] Alkaline Phosphatase 74 40 - 150 U/L 01/19/2023 4:17 PM CDT [facility] ALT 40 0 - 61 U/L 01/19/2023 4:17 PM CDT [facility] AST 42(H) 5 - 34 U/L 01/19/2023 4:17 PM CDT [facility] Protein Total 7.8 6.4 - 8.3 gm/dL 01/19/2023 4:17 PM CDT [facility] Albumin 4.3 3.5 - 5.2 gm/dL 01/19/2023 4:17 PM CDT [facility] Bilirubin Total 0.7 0.2 - 1.2 mg/dL 01/19/2023 4:17 PM CDT [facility] eGFR by CKD-EPI >90 >=90 mL/min/1.7 3 m2 01/19/2023 4:17 PM CDT [facility] Blood BLOOD SPECIMEN / Unknown Venipuncture / Unknown 01/19/2023 3:50 PM CDT 01/19/2023 3:56 PM CDT Blake Flores PA-C LAB - CHEMISTRY ORDERABLES Final Result [facility] [address] [place] [address] from Last 3 Months or Most Recently Relevant to Health Maintenance Insurance SELF PAY NO INSURANCE Member Subscriber Plan / Payer (Ef fective for All Dates) Name:Billy Galarza Member ID:Not on file Relation to Subscriber:Self Name:Billy Galarza Subscriber ID:Not on file Payer ID:Not on file Group ID:Not on file Type:Self Pay Address: [place], [place] Advance Directives * Full Code (Latest Code Status on File) Date Activated Date Inactivated Comments 03/04/2022 4:21 PM 03/05/2022 11:57 PM
--- NOTE | 2025-08-03 14:36 | ECG_ITS ---
Test Date: 2025-08-03 15:57:17 Measurements Intervals [place] Rate: 95 P: 73 WY: 148 QRS: 56 QRSD: 85 T: 42 QT: 351 QTc: 442 Interpretive Statements SINUS RHYTHM NORMAL ECG No previous ECG available for comparison Electronically Signed On 08-03-2025 16:23:16 CDT by Jonathan Ro D.O.
[2025-08-03 14:47] LABS: Hematocrit 28.8 % (37.0-47.0); Hemoglobin 7.4 g/dL (12.0-15.0); Immature Granulocyte Percent A 0.5 % (0-0.5); Immature Platelet Fraction Pct 7.4 % (0.9-11.2); Lymphocytes Absolute Auto 2.15 K/mm3 (0.9-3.2); Mean Corpuscular HGB Conc 25.7 g/dl (32-36); Mean Corpuscular Hemoglobin 16.2 pg (26-34); Mean Corpuscular Volume 63.2 fl (80-100); Nucleated Red Blood Cells Absolute Auto 0.000 K/mm3 (0.0-0.012); Nucleated Red Blood Cells Perc 0.0 % (0.0-0.2); Platelet Count Result 244 k/mm3 (150-375); Red Blood Count 4.56 M/mm3 (4.2-5.4); White Blood Count 10.9 K/mm3 (4.5-10.0)
[2025-08-03 14:55] LABS: Alanine Aminotransferase 17 U/L (6-35); Albumin Level 4.4 g/dL (3.5-5.1); Alkaline Phosphatase 69 U/L (38-126); Anion Gap 10 mmol/L (4-12); Aspartate Amino Transferase 24 U/L (14-36); Bilirubin,Total 0.8 mg/dL (0.2-1.3); Blood Urea Nitrogen 10 mg/dL (7-17); Calcium 8.7 mg/dL (8.4-10.2); Carbon Dioxide 26 mmol/L (22-30); Chloride 102 mmol/L (98-107); Estimated Glomerular Filt Rate > 60; Glucose 129 mg/dL (65-110); Potassium 3.8 mmol/L (3.4-5.0); Sodium 138 mmol/L (137-145); Total Protein 8.0 g/dL (6.3-8.2)
[2025-08-03 15:03] LABS: Hypochromasia 1+; Ovalocytes 1+
[2025-08-03 15:04] LABS: Anisocytosis 2+; Stomatocytes 1+
[2025-08-03 15:05] LABS: Schistocytes None Seen
[2025-08-03 16:17] LABS: Add Urine Microscopic? NO; Appearance Urine Clear (Clear); Glucose Urine UA Negative (Negative); Leukocyte Esterase Ur Negative LEU/UL (Negative); Nitrate Urine Negative (Negative); Specific Grav Ur 1.020 (1.001-1.035)
--- OUTSIDE RECORDS SUMMARY | 2025-08-03 16:18 | XMS_ITS | Encounter Summary ---
Author Organization [facility] Address [address] [address] Phone Care Team Providers Care Communication Arts Lecturer Name Role Phone Tmeo Waterman MD Primary Care Provider [phone] Reason for Visit * Reason Comments Med Refill Encounter Details Date Type Department Care Team (Late st Contact Info) Description 08/03/[address] [facility] Medicine [address] [place] [phone] Shala Neves MD [address] [place] [id number] Social History Tobacco Use Types Packs/Day [...] phone, visiting friends or family, going to buddhism or club meetings) 5 or more times [...] 025 Unable to get: Medicine or [facility] (Medical, Dental, Mental Health, Vision) No 01/23/2025 Unable to get: Phone No 01/23/2025 Unable to get: Clothing No 01/24/20 Unable to get: behavioral health care manager No 2024 Unable to get: Other No [...] Description 08/22/2025 8:30 AM CDT Office Visit [facility] [address] [facility] [place] [phone] Temo Waterman MD [address] [place] [address] 09/12/2025 3:30 PM LOSS PREVENTION DETECTIVE Office Visit [facility] [address] [facility] [place] [address] Israel Medina Jr., MD [address] [place] [address] documented as of this encounter Visit Diagnoses Not on filedocumented in this encounter Additional Health Concerns Assessment Noted Time PHQ-9 Depression Total Score: 8 04/27/20 9:28 AM EDT documented as of this encounter Care Teams Communication Arts Lecturer Relationship Specialty Start Date End Date Temo Waterman MD [address] [place] [address] PCP - General 04/30/25 documented as of this encounter
--- OUTSIDE RECORDS SUMMARY | 2025-08-03 16:18 | XMS_ITS | Clinical Summary ---
Author Organization [facility] Address [address] [place] [address] Phone Care Team Providers Care Pumper Gager Apprentice Name Role Phone Temo Waterman MD [...] 09/08/2022 Assessment & Plan (09/08/2022 11:31 AM MERCHANDISING DIRECTOR): Seeing therapist at [facility]. Declines medication or bh at [facility]. 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 left [...] 04/2022 Assessment & Plan (09/08/2022 11:22 AM MERCHANDISING DIRECTOR): hgb down to 8 on 09/08/22. Constipation [...] Overview (08/27/2022): Note: Unchanged - questionable NSTEMI. [facility] without obstructive disease. Troponin 1.35 but [...] with antacid medication. SPECT stress test 03/20/22 Ceex Haci without evidence of UT or ischemia. EF 76%. Encounters Date Type Department Care Team Description 08/03/2025 9:00 AM CDT Office Visit [address] [phone] Temo Waterman MD Routine general medical examination at a health care facility (Primary Dx) 08/03/[address] [address] Shala Neves MD 08/03/2025 Travel 06/04/[address] [address] Quyen Hilario RN 06/04/[address] [phone] Other, Encounters Med Refill from Last 3 [...] phone, visiting friends or family, going to yazdanism or club meetings) 5 or more times [...] Clothing No 01/24/20 25 Unable to get: care aid No 2024 Unable to get: Other No [...] Description 08/22/2025 8:30 AM CDT Office Visit [facility] Family Medicine [address] [place] [phone] Temo Waterman MD [address] [place], [place] [id number] 09/12/2025 3:30 PM MERCHANDISING DIRECTOR Office Visit [facility] [address] [place] [address] Israel Medina Jr., MD [address] [place] [address] Health Maintenance Due Date Last Done Comments [...] topic Meningococcal Vaccine Aged Out No gurwinder mita eligible based on patient's age to complete [...] virus) HM MAMMOGRAPHY Routine 01/07/2021 11:00 PM MERCHANDISING DIRECTOR HPV RNA, HR E6/E7, TMA Routine 04/29/2017 [...] RESULT Negative Negative 03/02/20 5:43 AM CDT [facility] (CLIA #:[id number]) Comment: The Cologuard (TM) test was performed [...] cancer. Following a negative Cologuard result, the [place] [employer] Society and U.S. Multi-Society Task Force screening guidelines recommend a Cologuard re-screening interval of 3 years. References: [place] [employer] Guideline for Colorectal Cancer Screening: https://www.cancer.org/cancer/eedjk-ecwbwu-ikibss/soerkyvuu-xuowpavhw-mbyzsqr/ac s-rec ommendations.html.; Jayden BARILLAS, Isidoro CHARLES, Monica BeckK, Colorectal Cancer Screening: Recommendations for Physicians and Patients from the U.S. Multi-Society Task Force on Colorectal Cancer Screening , Am J Gastroenterology 2017; 112:3337-7416. TEST DESCRIPTION: Composite algorithmic analysis of stool [...] Bassett et al, N Engl J Med 2014;370(14):4782-5068.) Cologuard may produce a false negative or false positive result (no colorectal cancer or precancerous polyp present at colonoscopy follow up). A negative Cologuard test result does not guarantee the absence of CRC or advanced adenoma (pre-cancer). The current Cologuard screening interval is every 3 years. ([place] [employer] Society and U.S. Multi-Society Task Force). Cologuard performance data in a 10,000 patient pivotal study using colonoscopy as the reference method can be accessed at the following location: www.[employer]/results. Additional description of the Cologuard test process, warnings and precautions can be found at www.cologuard.com. Stool 02/26/2025 12:1 0 PM CDT 02/27/2025 9:24 AM CDT China Aguirre MD LAB MOLECULAR DIAGNOSTI CS ORDERABLES Final Result [facility] (CLIA #:[id number]) [address] [place] [address], * POCT Rapid HIV (02/14/2024 3:35 PM CDT) Rapid HIV 1X2 Nonreactive Non-React aditi Internal Control Valid Blood 02/14/2024 3:35 PM CDT Blake Francois MD POINT OF CARE TEST ENTER/ED IT ORDERABLES Final Result * Hm Mammography (01/07/2021 11:00 PM MERCHANDISING DIRECTOR) Anatomical Region Laterality Modality Other 01/07/2021 11:0 0 PM MERCHANDISING DIRECTOR 01/07/2021 11:00 PM MERCHANDISING DIRECTOR Narrative 01/07/2021 11:00 PM MERCHANDISING DIRECTOR Access [employer] Patient Window in the Media Tab above to review report after 11/01/2018. For reports prior to 11/01/2018, reference [facility] Procedure [facility] - 11/10/2022 Access OnBase Patient Window in the Media Tab above to review report after11/01/2018. For reports prior to 11/01/2018, reference [facility] Conversion Provider HEALTH MAINTENANCE F inal Result * HPV RNA, HR E6/E7, TMA (04/29/2017 12:17 PM CDT) HPV RNA, HR E6/E7, TMA Not Detected Not Detected [facility] Comment:This test was perfor med using the APTIMA HPV Assay ([employer] This assay detects E6/E7 viral messenger RNA (mRNA) from 14 high-risk HPV types (16,18,31,33,35,39,45,51,52,56,58,59,66,68). 04/29/2017 12:1 7 PM CDT 04/29/2017 12:17 PM CDT [facility] Conversion Provider LAB MICROBIOLOGY - G ENERAL [...] Recently Relevant to Health Maintenance Care Teams Pumper Gager Apprentice Relationship Specialty Start Date End Date Temo Waterman MD [address] [place] [address] PCP - General 04/30/25
--- OUTSIDE RECORDS SUMMARY | 2025-08-03 16:18 | XMS_ITS | Clinical Summary ---
Author Organization [facility] Address [address] [place] [address] Care Team Providers Care Mother Repairer Name Role Phone Unavailable Primary Care Provider Unavailabl e Source Comments [facility],non-owned Affiliates and Associated Physician Practices is amultiple site organization consisting of ambulatory clinics and hospital sitesin [place], [place], [place] and [place]. This disclosure is being madepursuant to the Care Everywhere program and may not contain all information available regarding this patient. Last updated 18.[facility] Allergies No known active allergies Medications * [...] of RUL PNA. Secondary to inability to machine pecan picker antibiotics, patient was seen in PCP office [...] -Pulse ox Atherosclerotic heart diseas e of [place] coronary artery without angina pectoris 06/15/2017 Non-ST [...] of RUL PNA. Secondary to inability to machine pecan picker antibiotics, patient was seen in PCP office [...] alcohol) once every 2 months at a republican PHQ-2 Answer Date Recorded Patient Health Questionnaire-2 Score 1 07/08/2023 Comments No Sex and Gender Information Value Date Recorded Sex Assigned at Not on file Legal Sex Female 5:32 PM INGOT WEIGHER Gender Identity Not on file Sexual Orientation [...] - 34 U/L 01/19/2023 4:17 PM CDT [facility] Protein Total 7.8 6.4 - 8.3 gm/dL 01/19/2023 4:17 PM CDT [facility] Albumin 4.3 3.5 - 5.2 gm/dL 01/19/2023 4:17 PM CDT [facility] Bilirubin Total 0.7 0.2 - 1.2 mg/dL 01/19/2023 4:17 PM CDT [facility] eGFR by CKD-EPI >90 >=90 mL/min/1.7 3 m2 01/19/2023 4:17 PM CDT [facility] Blood BLOOD SPECIMEN / Unknown Venipuncture / Unknown 01/19/2023 3:50 PM CDT 01/19/2023 3:56 PM CDT Blake Flores PA-C LAB - CHEMISTRY ORDERABLES Final Result [facility] [address] [place] [address] from Last 3 Months or Most Recently Relevant to Health Maintenance Insurance SELF PAY NO INSURANCE Member Subscriber Plan / Payer (Ef fective for All Dates) Name:Billy Galarza Member ID:Not on file Relation to Subscriber:Self Name:Billy Galarza Subscriber ID:Not on file Payer ID:Not on file Group ID:Not on file Type:Self Pay Address: [place], [place] Advance Directives * Full Code (Latest Code Status on File) Date Activated Date Inactivated Comments 03/04/2022 4:21 PM 03/05/2022 11:57 PM
--- OUTSIDE RECORDS SUMMARY | 2025-08-03 16:18 | XMS_ITS | Encounter Summary ---
Author Organization [employer] Address [address], [place] [address] Phone Care Team Providers Care Tack Puller Name Role Phone Temo Waterman MD Primary Care Provider [phone] Encounter Details Date Type Department Care Team [...] phone, visiting friends or family, going to oriental orthodox or club meetings) 5 or more [...] get: Clothing No 01/24/20 Unable to get: gericare aide No 2024 Unable to get: Other No [...] Description 08/22/2025 8:30 AM CDT Office Visit [facility] [address] [place] [phone] Temo Waterman MD [address] [place] [address] 09/12/2025 3:30 PM MACHINE FELLER [facility] [phone] Israel Medina Jr., MD [facility] [place], [place] [id number] documented as of this encounter Visit Diagnoses Not on filedocumented in this encounter Additional Health Concerns Assessment Noted Time PHQ-9 Depression Total Score: 8 04/27/20 25 9:28 AM EDT documented as of this encounter Care Teams Tack Puller Relationship Specialty Start Date End Date Temo Waterman MD [address] [place] [address] PCP - General 04/30/25 documented as of this encounter
[2025-08-03 16:39] VITALS: BP 139/67; PULSE 86; RESP 18; O2SAT 100
--- NOTE | 2025-08-03 16:40 | PC.NURSE ---
lab called to add on TS
--- NOTE | 2025-08-03 16:58 | ED_ITS ---
HPI - Recheck/Abnormal Lab/Rx General Chief Complaint: Recheck/Abnormal Lab/Rx Stated Complaint: low hgb Time Seen by Provider: 08/03/25 16:00 Source: patient Mode of arrival: ambulatory Limitations: language barrier (Using stratus translator and interpreter) History of Present Illness HPI narrative: Patient presents to the emergency department for weakness, shortness of breath. Was seen in a clinic in told her hemoglobin was low. Does report known history of anemia. Reports she has not been taking her iron supplementation over the last month. Denies chest pain. No current bleeding. Related Data Allergies Allergy/AdvReac Type Severity Reaction Status Date / Time No Known Allergies Allergy Verified 08/03/25 14:35 Review of Systems 2 Review of Systems: All systems reviewed & are unremarkable except as noted in HPI and below PMFSH Past Medical History Medical History (Updated 08/03/25 @ 17:00 by Adeline Ashraf PA-C) Grand multipara 6 births, 5 living children Multigravida 8 Family History Family History Unknown , at 2 years old Cardiac anomaly, congenital Exam 2 Narrative: GENERAL: Well-appearing, well-nourished, and in no acute distress. HEAD: Normocephalic, atraumatic. EYES: PERRLA and EOMI. ENT: Nares clear, no rhinorrhea or epistaxis. Mucous membranes moist. Oropharynx without tonsillar hypertrophy exudate or other lesions. NECK: Supple. No adenopathy or masses CHEST: Clear to auscultation. No respiratory distress. No wheezes rales or rhonchi HEART: Regular rate and rhythm. No murmur heard. Normal peripheral pulses. EXTREMITIES: Normal range of motion. No edema. SKIN: Warm, dry, no rash. NEURO: No focal deficits. Alert and oriented x3. PSYCH: Normal mood and affect Course Vital Signs Vital signs: Vital Signs Temperature 97.6 F 08/03/25 14:31 Pulse Rate 91 08/03/25 14:31 Respiratory Rate 18 08/03/25 14:31 Blood Pressure 142/58 H 08/03/25 14:31 Pulse Oximetry 100 08/03/25 14:31 Oxygen Delivery Room Air 08/03/25 14:31 Temperature 97.6 F 08/03/25 14:31 Pulse Rate 86 08/03/25 16:39 Respiratory Rate 18 08/03/25 16:39 Blood Pressure 139/67 08/03/25 16:39 Pulse Oximetry 100 08/03/25 16:39 Oxygen Delivery Room Air 08/03/25 16:39 MDM - Recheck/Abnormal Lab/Rx MDM Narrative Medical decision making narrative: Patient presents the emergency department for low hemoglobin. Patient does have history of known anemia. Reports she has not been taking her iron supplementation the last month. No current bleeding. Her hemoglobin today is 7.4 which appears stable from last year. Metabolic panel without concerning findings, urine without evidence of infection. Chest x-ray without acute cardiopulmonary abnormality. EKG is normal. Patient updated on her workup. Will be restarted on her iron supplementation. Given information for follow-up with Hematology. She was given warnings to return to the ER Lab Data Attestation: I reviewed the patient's lab results. 08/03/25 14:40 08/03/25 14:40 Labs: Lab Results 08/03/25 08/03/25 Range/Units 14:40 16:07 WBC 10.9 H (4.5-10.0) K/mm3 RBC 4.56 (4.2-5.4) M/mm3 Hgb 7.4 L (12.0-15.0) g/dL Hct 28.8 L (37.0-47.0) % MCV 63.2 L (80-100) fl MCH 16.2 L (26-34) pg MCHC 25.7 L (32-36) g/dl RDW 20.1 H (11.5-14.5) % Plt Count 244 (150-375) k/mm3 MPV 9.9 (7.4-10.4) fl Immature Gran % (Auto) 0.5 (0-0.5) % Neut % (Auto) 72.7 (45.5-73.1) % Lymph % (Auto) 19.7 (18.3-44.2) % Coles % (Auto) 5.6 (2.6-8.5) % Eos % (Auto) 1.0 (0-4.4) % Baso % (Auto) 0.5 (0.2-1.2) % Lymph # (Auto) 2.15 (0.9-3.2) K/mm3 Coles # (Auto) 0.6 (0.1-0.6) K/mm3 Eos # (Auto) 0.1 (0-0.3) K/mm3 Baso # (Auto) 0.1 (0.0-0.1) K/mm3 Abs Immat Gran (auto) 0.06 H (0.00-0.031) K/mm3 Absolute Neuts (auto) 7.9 H (1.3-6.7) K/mm3 Absolute Nucleated RBC 0.000 (0.0-0.012) K/mm3 Band Neutrophils % Not Reportable Nucleated RBC % 0.0 (0.0-0.2) % Platelet Estimate Adequate (Adequate) % Immature Plt Fraction 7.4 (0.9-11.2) % Hypochromasia 1+ Anisocytosis 2+ Ovalocytes 1+ Stomatocytes 1+ Schistocytes None seen Sodium 138 (137-145) mmol/L Potassium 3.8 (3.4-5.0) mmol/L Chloride 102 (98-107) mmol/L Carbon Dioxide 26 (22-30) mmol/L Anion Gap 10 (4-12) mmol/L BUN 10 (7-17) mg/dL Creatinine 0.61 L (0.7-1.0) mg/dL Estim Creat Clear Calc Not Reportable Estimated GFR > 60 (59 - ) Glucose 129 H (65-110) mg/dL Calcium 8.7 (8.4-10.2) mg/dL Total Bilirubin 0.8 (0.2-1.3) mg/dL AST 24 (14-36) U/L ALT 17 (6-35) U/L Alkaline Phosphatase 69 (38-126) U/L Total Protein 8.0 (6.3-8.2) g/dL Albumin 4.4 (3.5-5.1) g/dL Urine Color Yellow (Yellow) Urine Appearance Clear (Clear) Urine pH 6.0 (5.0-9.0) Ur Specific [place] 1.020 (1.001-1.035) Urine Protein Negative (Negative) mg/dL Urine Glucose (UA) Negative (Negative) mg/dL Urine Ketones Negative (Negative) mg/dL Ur Blood (Man) Negative (Negative) Urine Nitrate Negative (Negative) Urine Bilirubin Negative (Negative) Urine Urobilinogen 1.0 (<2.0) mg/dL Leukocyte Esterase Rfl Negative (Negative) AYDEN/UL Blood Type O Positive Antibody Screen Pending Imaging Data Radiologist's impression: ITS Impressions Chest X-Ray 08/03/25 14:57 IMPRESSION: 1. No acute cardiopulmonary disease. ECG Data EKG #1: ECG completion date: 08/03/25 EKG Interpretation: normal rate, sinus rhythm, no ST changes and normal QT Critical Care Time Critical Care Time Critical Care Time: No Discharge Plan Discharge Clinical Impression: Anemia Qualifiers: Anemia type: unspecified type Qualified Code(s): D64.9 - Anemia, unspecified Patient Disposition: Home Condition: Stable Instructions: Anemia (ED) Additional Instructions: Return to the ER if you experience chest pain, worsening shortness of breath, you pass out, or any other symptoms that are concerning to you Take iron supplementation as prescribed Follow up with your primary care doctor and hematology (Dr. Troncoso) If the iron supplmentation is upsetting your stomach it might be helpful to get iron infusions set up Patient Language: Macedonian Prescriptions: New ferrous sulfate [iron] 325 mg (65 mg iron) tablet 325 mg PO Q48H Qty: 30 0RF Rx Instructions: take every other day No Action famotidine 10 mg tablet 10 mg PO DAILY Qty: 20 0RF Follow-up/Referrals: Ori Troncoso MD [Physician, Hematology] PHYSICIAN,HEEL SLUGGER [Primary Care Provider, Internal Medicine]
[2025-08-03 17:16] VITALS: BP 129/42; PULSE 81; RESP 18; O2SAT 99
== END 2025-08-03 17:17 | disposition home or self-care (01) ==
PROVIDERS: Emergency Medicine; Emergency Provider Physician Assistant
DX: D64.9 Anemia, unspecified (principal)
CPT/HCPCS: 36415; 71046; 80053; 81003; 85025; 85055; 86850; 86900; 86901; 93005; 99283

== ENCOUNTER 2025-10-12 23:59 | Emergency (ER) | payer SELFPAY ==
--- NOTE | ~2025-10-12 | XR_ITS ---
Examination: XR chest 1V portable Clinical History: chest pain Comparison: 08/30/2025 Technique: Portable AP Findings: Heart size normal. Lungs clear. No acute bony abnormality. IMPRESSION: 1. No acute cardiopulmonary findings given portable technique. Consider PA and lateral films. Reviewed, dictated and finalized at location R. ERN ROOM ATTENDANT
[2025-10-13] VITALS (7 sets, daily range): BP systolic 112–140; BP diastolic 51–71; PULSE 84–120; RESP 12–18; TEMP 36.3–37.2; O2SAT 96–100
--- OUTSIDE RECORDS SUMMARY | 2025-10-13 00:02 | XMS_ITS | Clinical Summary ---
Author Organization [facility] [place] Address [address] [place] [address] Care Team Providers Care [employer] Name Role Phone Temo Waterman MD Primary Care Provider [phone] Allergies No known active allergies Medications COVID-19 [...] 026 Active Diclofenac Sodium 1 % gel APPLY 1 GRAM TOPICALLY IF NEEDED IN THE MORNING AND AT BEDTIME FOR ELBOW AND SHOULDER PAIN. 100 g 5 Active Active Problems Problem Noted Date Diagnosed Date Intramural and subserous leiomyoma of uterus Essential hypertension 02/14/2024 Overview (02/14/2024): Elevated pressure [...] 09/08/2022 Assessment & Plan (09/08/2022 11:31 AM RENTAL SALES REPRESENTATIVE): Seeing therapist at [place]. Declines medication or bh at [facility]. Ovarian neoplasm 03/23/2022 Overview (08/27/2022): Note: pelvic ultrasound 03/05/22 [place] with 5.5 x 2.2 x 3.3. 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 Iron deficiency anemia 03/04/2022 Assessment & Plan (08/05/2025 5:03 PM CDT): Patient presenting today with symptomatic anemia to 6 g/dL. No clear signs of bleeding on history or exam. 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 Screening for condition 07/29/2021 Overview (08/03/2023): Mammogram normal on 01-06-2023 [facility] van. pap 04/2019. due 04/2022 Due for hepatitis [...] 04/2022 Assessment & Plan (09/08/2022 11:22 AM RENTAL SALES REPRESENTATIVE): hgb down to 8 on 09/08/22. Constipation [...] Overview (08/27/2022): Note: Unchanged - questionable NSTEMI. [facility] without obstructive disease. Troponin 1.35 but patient [...] with antacid medication. SPECT stress test 03/20/22 [place] without evidence of [place] or ischemia. EF 76%. Encounters Date Type Department Care Team Description 08/21/[address] [phone] Other, Encounters Appointment Confirmation 08/03/2025 9:00 AM CDT Office Visit [address] [phone] Temo Waterman MD Routine general medical examination at a health care facility (Primary Dx); Iron deficiency anemia, unspecified iron deficiency anemia type 08/03/[address] [phone] Shala Neves MD 08/03/2025 Travel from Last 3 Months Immunizations Immunization Administration [...] phone, visiting friends or family, going to gnosticism or club meetings) 5 or more times [...] 025 Unable to get: Medicine or A ct Health Care (Medical, Dental, Mental Health, Vision) No 01/23/2025 Unable to get: Phone No 01/23/2025 Unable to get: Clothing No 01/24/20 Unable to get: acute care nurse practitioner No 2024 Unable to get: Other No [...] 08/03/2025 9:37 AM CDT Plan of Treatment Health Maintenance Due [...] 01/06/2023, Additional history exists COVID-19 Vaccine ( season) 2025 Influenza Vaccine (#1) 2025 , [...] virus) HM MAMMOGRAPHY Routine 01/07/2021 11:00 PM RENTAL SALES REPRESENTATIVE HPV RNA, HR E6/E7, TMA Routine 04/29/2017 [...] PM CDT) COLOGUARD RESULT Negative Negative 03/02/20 25 5:[address] (CLIA #:[id number]) Comment: The Cologuard (TM) test was performed [...] screened with both Cologuard and colonoscopy. (Elliot Cornelius, N Engl J Med 2014;370(14):1286- 1297) The normal value (reference range) for this assay is negative. COLOGUARD RE-SCREENING RECOMMENDATION: Periodic colorectal cancer screening is an important part of preventive healthcare for asymptomatic individuals at average risk for colorectal cancer. Following a negative Cologuard result, the [place] Cancer Society and U.S. Multi-Society Task Force screening guidelines recommend a Cologuard re-screening interval of 3 years. References: [place] [employer] Guideline for Colorectal Cancer Screening: https://www.cancer.org/cancer/qkvwr-djycpm-mbppij/ejmdfnstw-kzntrokwk-wsmnnjy/ac s-rec ommendations.html.; Jayden DK, Isidoro CR, Monica BeckK, Colorectal Cancer Screening: Recommendations for Physicians and Patients from the U.S. Multi-Society Task Force on Colorectal Cancer Screening , Am J Gastroenterology 2017; 112:4414-9134. TEST DESCRIPTION: Composite algorithmic analysis of stool [...] screened with both Cologuard and colonoscopy. (Elliot Cornelius, N Engl J Med 2014;370(14):5853-8561.) Cologuard may produce a false negative or false positive result (no colorectal cancer or precancerous polyp present at colonoscopy follow up). A negative Cologuard test result does not guarantee the absence of CRC or advanced adenoma (pre-cancer). The current Cologuard screening interval is every 3 years. ([place] Cancer Society and U.S. Multi-Society Task Force). Cologuard performance data in a 10,000 patient pivotal study using colonoscopy as the reference method can be accessed at the following location: www.[employer]peed.[facility]/results. Additional description of the Cologuard test process, warnings and precautions can be found at www.cologuard.com. Stool 02/26/2025 12:1 0 PM CDT 02/27/2025 9:24 AM CDT China Aguirre MD LAB MOLECULAR DIAGNOSTI CS ORDERABLES Final Result [facility] (CLIA #:[id number]) [address] [place] [address], * POCT Rapid HIV (02/14/2024 3:35 PM CDT) Rapid HIV 1X2 Nonreactive Non-React aditi Internal Control Valid Blood 02/14/2024 3:35 PM CDT Blake Francois MD POINT OF CARE TEST ENTER/ED IT ORDERABLES Final Result * Hm Mammography (01/07/2021 11:00 PM RENTAL SALES REPRESENTATIVE) Anatomical Region Laterality Modality Other 01/07/2021 11:0 0 PM RENTAL SALES REPRESENTATIVE 01/07/2021 11:00 PM RENTAL SALES REPRESENTATIVE Narrative 01/07/2021 11:00 PM RENTAL SALES REPRESENTATIVE Access [employer] Patient Window in the Media Tab above to review report after 11/01/2018. For reports prior to 11/01/2018, reference Fernando Procedure Note Provider, Jedstrebecca Conversion - 11/10/2022 Access OnBase Patient Window in the Media Tab above to review report after11/01/2018. For reports prior to 11/01/2018, reference [facility] Provider HEALTH MAINTENANCE F inal Result * HPV RNA, HR E6/E7, TMA (04/29/2017 12:17 PM CDT) HPV RNA, HR E6/E7, TMA Not Detected Not Detected [facility] Comment:This test was perfor med using the APTIMA HPV Assay ([employer] This assay detects E6/E7 viral messenger RNA (mRNA) from 14 high-risk HPV types (16,18,31,33,35,39,45,51,52,56,58,59,66,68). 04/29/2017 12:1 7 PM CDT 04/29/2017 12:17 PM CDT [facility] Conversion Provider LAB MICROBIOLOGY - G ENERAL ORDERABLES Final Result Performing Organization Address City/[facility] Co de Phone Number [facility] * THINPREP TIS PAP (04/29/2017 12:17 [...] 7 PM CDT 04/29/2017 12:17 PM CDT [facility] Conversion Provider LAB MICROBIOLOGY - G ENERAL ORDERABLES Final Result [facility] from Last 3 Months or Most Recently Relevant to Health Maintenance Care Teams [employer] Relationship Specialty Start Date End Date Temo Waterman MD [address] [place] [address] PCP - General 04/30/25
--- NOTE | 2025-10-13 00:07 | ECG_ITS ---
Test Date: 2025-10-13 00:11:36 Measurements Intervals [place] Rate: 114 P: 69 MS: 175 QRS: 51 QRSD: 78 T: 39 QT: 319 QTc: 441 Interpretive Statements SINUS TACHYCARDIA ABNORMAL ECG Compared to ECG 08/03/2025 15:57:17 HEART RATE HAS INCREASED Electronically Signed On 10-13-2025 08:32:33 MANAGER MAINTENANCE by Jonathan Ro D.O.
--- OUTSIDE RECORDS SUMMARY | 2025-10-13 00:46 | XMS_ITS | Clinical Summary ---
Author Organization [facility] [place] Address [address] [place] [address] Care Team Providers Care Software Security Consultant Name Role Phone Temo Waterman MD Primary Care Provider [phone] Allergies No known active allergies Medications COVID-19 [...] 09/08/2022 Assessment & Plan (09/08/2022 11:31 AM STOCK LETTERER): Seeing therapist at [place]. Declines medication or bh at [facility]. Ovarian neoplasm 03/23/2022 Overview (08/27/2022): Note: pelvic ultrasound 03/05/22 [place] with 5.5 x 2.2 x 3.3. left [...] 07/29/2021 Overview (08/03/2023): Mammogram normal on 01-06-2023 [facility] van. pap 04/2019. due 04/2022 Due for [...] 04/2022 Assessment & Plan (09/08/2022 11:22 AM STOCK LETTERER): hgb down to 8 on 09/08/22. Constipation [...] Overview (08/27/2022): Note: Unchanged - questionable NSTEMI. [facility] without obstructive disease. Troponin 1.35 but patient [...] with antacid medication. SPECT stress test 03/20/22 [place] without evidence of [place] or ischemia. EF 76%. Encounters Date Type Department Care Team Description 08/21/[address] [phone] Other, Encounters Appointment Confirmation 08/03/2025 9:00 AM CDT Office Visit [address] [phone] Temo Waterman MD Routine general medical examination at a health care facility (Primary Dx); Iron deficiency anemia, unspecified iron deficiency anemia type 08/03/[address] [phone] Shala Neves MD 08/03/2025 Travel from Last [...] phone, visiting friends or family, going to spiritism or club meetings) 5 or more times [...] 025 Unable to get: Medicine or A co Health Care (Medical, Dental, Mental Health, Vision) No 01/23/2025 Unable to get: Phone No 01/23/2025 Unable to get: Clothing No 01/24/20 Unable to get: home care manager No 2024 Unable to get: [...] virus) HM MAMMOGRAPHY Routine 01/07/2021 11:00 PM STOCK LETTERER HPV RNA, HR E6/E7, TMA Routine 04/29/2017 [...] Negative Negative 03/02/20 25 5:43 AM CDT [facility] (CLIA #:[id number]) Comment: The Cologuard (TM) test was performed [...] cancer. Following a negative Cologuard result, the [place] [employer] and U.S. Multi-Society Task Force screening guidelines recommend a Cologuard re-screening interval of 3 years. References: [place] [employer] Guideline for Colorectal Cancer Screening: https://www.cancer.org/cancer/ayqfw-zzjehj-utyxbp/mxhvuppqt-ebyxaloyr-vcxgrkl/ac s-rec ommendations.html.; Jayden DK, Isidoro CR, Monica BeckK, Colorectal Cancer Screening: Recommendations for Physicians and Patients from the U.S. Multi-Society Task Force on Colorectal Cancer Screening , Am J Gastroenterology 2017; 112:4122-3176. TEST DESCRIPTION: Composite algorithmic analysis of stool [...] colonoscopy. (Elliot Cornelius, N Engl J Med 2014;370(14):8110-0190.) Cologuard may produce a false negative or false positive result (no colorectal cancer or precancerous polyp present at colonoscopy follow up). A negative Cologuard test result does not guarantee the absence of CRC or advanced adenoma (pre-cancer). The current Cologuard screening interval is every 3 years. ([place] [employer] and U.S. Multi-Society Task Force). Cologuard performance data in a 10,000 patient pivotal study using colonoscopy as the reference method can be accessed at the following location: www.[employer]/results. Additional description of the Cologuard test process, warnings and precautions can be found at www.cologuard.com. Stool 02/26/2025 12:1 0 PM CDT 02/27/2025 9:24 AM CDT China Aguirre MD LAB MOLECULAR DIAGNOSTI CS ORDERABLES Final Result [facility] (CLIA #:[id number]) [address] [place] [address], * POCT Rapid HIV (02/14/2024 3:35 PM CDT) Rapid HIV 1X2 Nonreactive Non-React aditi Internal Control Valid Blood 02/14/2024 3:35 PM CDT Blake Francois MD POINT OF CARE TEST ENTER/ED IT ORDERABLES Final Result * Hm Mammography (01/07/2021 11:00 PM STOCK LETTERER) Anatomical Region Laterality Modality Other 01/07/2021 11:0 0 PM STOCK LETTERER 01/07/2021 11:00 PM STOCK LETTERER Narrative 01/07/2021 11:00 PM STOCK LETTERER Access On[employer] Patient Window in the Media Tab above to review report after 11/01/2018. For reports prior to 11/01/2018, reference Fernando Procedure Note Provider, Jedstrebecca Conversion - 11/10/2022 Access On[employer] Patient Window in the Media Tab above to review report after11/01/2018. For reports prior to 11/01/2018, reference [facility] Provider HEALTH MAINTENANCE F inal Result * HPV RNA, HR E6/E7, TMA (04/29/2017 12:17 PM CDT) HPV RNA, HR E6/E7, TMA Not Detected Not Detected [facility] Comment:This test was perfor med using the APTIMA HPV Assay ([employer] This assay detects E6/E7 viral messenger RNA (mRNA) from 14 high-risk HPV types (16,18,31,33,35,39,45,51,52,56,58,59,66,68). 04/29/2017 12:1 7 PM CDT 04/29/2017 12:17 PM CDT [facility] Conversion Provider LAB MICROBIOLOGY - G ENERAL ORDERABLES Final Result Performing Organization Address City/[facility] Co de Phone Number [facility] * THINPREP [...] Recently Relevant to Health Maintenance Care Teams Software Security Consultant Relationship Specialty Start Date End Date Temo Waterman MD [address] [place] [address] PCP - General 04/30/25
[2025-10-13 00:49] LABS: Hematocrit 24.1 % (37.0-47.0); Immature Granulocyte Percent A 0.8 % (0-0.5); Immature Platelet Fraction Pct 6.9 % (0.9-11.2); Lymphocytes Absolute Auto 1.41 K/mm3 (0.9-3.2); Mean Corpuscular HGB Conc 25.3 g/dl (32-36); Mean Corpuscular Hemoglobin 15.7 pg (26-34); Mean Corpuscular Volume 62.1 fl (80-100); Nucleated Red Blood Cells Absolute Auto 0.050 K/mm3 (0.0-0.012); Nucleated Red Blood Cells Perc 0.5 % (0.0-0.2); Platelet Count Result 257 k/mm3 (150-375); Red Blood Count 3.88 M/mm3 (4.2-5.4); White Blood Count 9.6 K/mm3 (4.5-10.0)
[2025-10-13 01:00] LABS: Alanine Aminotransferase 19 U/L (6-35); Albumin Level 4.4 g/dL (3.5-5.1); Alkaline Phosphatase 71 U/L (38-126); Anion Gap 8 mmol/L (4-12); Aspartate Amino Transferase 27 U/L (14-36); Bilirubin,Total 0.7 mg/dL (0.2-1.3); Blood Urea Nitrogen 9 mg/dL (7-17); Calcium 9.1 mg/dL (8.4-10.2); Carbon Dioxide 27 mmol/L (22-30); Chloride 103 mmol/L (98-107); Estimated Glomerular Filt Rate > 60; Glucose 159 mg/dL (65-110); Potassium 3.6 mmol/L (3.4-5.0); Sodium 138 mmol/L (137-145); Total Protein 7.6 g/dL (6.3-8.2)
--- NOTE | 2025-10-13 01:07 | ED.CHESTPAIN ---
HPI - Chest Pain General Chief Complaint: Chest Pain Stated Complaint: chest pain Time Seen by Provider: 10/13/25 00:33 Source: patient and interpreter deaf Mode of arrival: ambulatory Limitations: no limitations History of Present Illness HPI narrative: This is a 50-year-old female with history of anemia who presents to the ED for chest pain and shortness of breath. Patient states that for the past 3 days, she has been having the symptoms. She has also had palpitations. She states this commonly happens after her menstrual period which she completed 3 days ago. She often has issues with anemia. She has never had a transfusion before. She has had 1 iron infusion and was supposed to be on these more regularly but she had problems with insurance. She does not currently follow with a mergers and acquisitions consultant. Denies blood in stool hematuria, fevers, chills abdominal pain, nausea vomiting. Related Data Allergies Allergy/AdvReac Type Severity Reaction Status Date / Time No Known Allergies Allergy Verified 10/13/25 00:00 Review of Systems Review of Systems: Gen.: Denies fevers or chills Eyes: Denies eye pain or visual change ENT: Denies congestion Respiratory: As per HPI CV: As per HPI GI: Denies abdominal pain nausea, emesis or diarrhea denies burning, urgency, frequency or hematuria Musculoskeletal: Denies back pain or muscle pain Neuro: Denies numbness, tingling, weakness or focal weakness Skin: Denies rash Except as documented, all other systems reviewed and negative FORMERLY [facility] Past Medical History Medical History Grand multipara 6 births, 5 living children Multigravida 8 Family History Family History Unknown , at 2 years old Cardiac anomaly, congenital Exam Narrative: APPEARANCE: No acute distress, nontoxic, resting in bed EYES: EOMI. Conjunctival pallor HEENT: Normocephalic, atraumatic, mucosal pallor. RESPIRATORY: No respiratory distress Clear to auscultation bilaterally with no rhonchi wheezing or rales. CARDIOVASCULAR: Tachycardic with regular rhythm without murmurs rubs or gallops. ABDOMINAL: Soft, nontender, nondistended, no rebound or guarding MUSCULOSKELETAl: Moves all extremities. No clubbing, cyanosis or edema. NEURO: Awake and alert. Following commands, speech normal, no focal deficits SKIN:: Warm, dry. No rashes lesions or abrasions PSYCHIATRIC: Normal affect/mood, Course Vital Signs Vital signs: Vital Signs Pulse Rate 120 H 10/13/25 00:08 Respiratory Rate 12 10/13/25 00:08 Pulse Oximetry 100 10/13/25 00:08 Oxygen Delivery Room Air 10/13/25 00:08 Temperature 97.4 F L 10/13/25 05:36 Pulse Rate 95 10/13/25 06:23 Respiratory Rate 16 10/13/25 06:23 Blood Pressure 130/58 L 10/13/25 06:23 Pulse Oximetry 96 10/13/25 06:23 Oxygen Delivery Room Air 10/13/25 00:08 MDM MDM Narrative Medical decision making narrative: 50-year-old female Presenting for shortness of breath and lethargy. On initial evaluation patient was in no acute distress afebrile, hemodynamic stable. She is tachycardic to the 120s. Differentials include but are not limited to: ACS, CHF Exacerbation, COPD exacerbation, PE, PNA, PTX, bronchitis, viral syndrome, anemia Notable exam findings: Conjunctival pallor and mucosal pallor, heart and lungs clear aside from tachycardia. I personally reviewed the patient's lab result. Notable lab findings: Anemic to 6.1 which is new for her. CMP without significant abnormalities. I personally reviewed the patient's EKGs: Sinus tachycardia rate of 114 with a normal axis normal intervals no acute ST or T-wave changes. The patient was given 2 units PRBCs. Wall about detention through the 1st unit, she did develop some chest pain but remained hemodynamically stable during this. Because of this EKG and chest x-ray were obtained. Repeat EKG showed normal sinus rhythm rate of 98, normal axis normal intervals, no acute ST or T-wave changes, no change from prior. Chest x-ray showed possibly some mild pulmonary vascular congestion patient did have improvement of her symptoms after Toradol. She was requesting not to have the additional unit. Repeat H&H was obtained which showed hemoglobin of 7.8. Patient was deemed appropriate for discharge at this time. Patient was given a referral to Dr. Troncoso, hematology, to establish care. Patient was agreeable to this plan. Given strict return precautions. Differential Diagnosis Differential Diagnosis: ACS, CHF Exacerbation, COPD exacerbation, PE, PNA, PTX, bronchitis, viral syndrome, anemia Lab Data MDM Lab Attestation statement: I personally reviewed the patient's lab results. 10/13/25 05:26 10/13/25 00:38 Labs: Lab Results 10/13/25 10/13/25 10/13/25 Range/Units 00:38 01:05 05:26 WBC 9.6 (4.5-10.0) K/mm3 RBC 3.88 L (4.2-5.4) M/mm3 Hgb 6.1 L* 7.8 L (12.0-15.0) g/dL Hct 24.1 L 29.3 L (37.0-47.0) % MCV 62.1 L (80-100) fl MCH 15.7 L (26-34) pg MCHC 25.3 L (32-36) g/dl RDW 20.1 H (11.5-14.5) % Plt Count 257 (150-375) k/mm3 MPV 10.4 (7.4-10.4) fl Immature Gran % (Auto) 0.8 H (0-0.5) % Neut % (Auto) 77.2 H (45.5-73.1) % Lymph % (Auto) 14.7 L (18.3-44.2) % Miner % (Auto) 6.2 (2.6-8.5) % Eos % (Auto) 0.7 (0-4.4) % Baso % (Auto) 0.4 (0.2-1.2) % Lymph # (Auto) 1.41 (0.9-3.2) K/mm3 Miner # (Auto) 0.6 (0.1-0.6) K/mm3 Eos # (Auto) 0.1 (0-0.3) K/mm3 Baso # (Auto) 0.0 (0.0-0.1) K/mm3 Abs Immat Gran (auto) 0.08 H (0.00-0.031) K/mm3 Absolute Neuts (auto) 7.4 H (1.3-6.7) K/mm3 Absolute Nucleated RBC 0.050 H (0.0-0.012) K/mm3 Band Neutrophils % Not Reportable Nucleated RBC % 0.5 H (0.0-0.2) % Platelet Estimate Adequate (Adequate) % Immature Plt Fraction 6.9 (0.9-11.2) % Hypochromasia 1+ Anisocytosis 2+ Ovalocytes 2+ Schistocytes None seen Sodium 138 (137-145) mmol/L Potassium 3.6 (3.4-5.0) mmol/L Chloride 103 (98-107) mmol/L Carbon Dioxide 27 (22-30) mmol/L Anion Gap 8 (4-12) mmol/L BUN 9 (7-17) mg/dL Creatinine 0.98 (0.7-1.0) mg/dL Estim Creat Clear Calc Not Reportable Estimated GFR > 60 (59 - ) Glucose 159 H (65-110) mg/dL Calcium 9.1 (8.4-10.2) mg/dL Total Bilirubin 0.7 (0.2-1.3) mg/dL AST 27 (14-36) U/L ALT 19 (6-35) U/L Alkaline Phosphatase 71 (38-126) U/L Troponin I < 0.012 (0.000-0.034) ng/mL Total Protein 7.6 (6.3-8.2) g/dL Albumin 4.4 (3.5-5.1) g/dL Blood Type O Positive Antibody Screen Negative Crossmatch See Detail Imaging Data Radiologist's impression: ITS Impressions Chest X-Ray 10/13/25 06:33 IMPRESSION: 1. No acute cardiopulmonary findings given portable technique. Consider PA and lateral films. Discharge Plan Discharge Clinical Impression: Anemia Qualifiers: Anemia type: unspecified type Qualified Code(s): D64.9 - Anemia, unspecified Patient Disposition: Home Condition: Stable Instructions: Antibiotic Form, Anemia (ED) Additional Instructions: Street hemoglobina estaba baja y necesita vicente transfusi?n. La hemoglobina de repetici?n mejor? despu?s de la administraci?n de la robert. Se le remiti? al Dr. Troncoso, hematolog?a. Acuda a street consulta la pr?xima semana para vicente reevaluaci?n. Regrese a urgencias si presenta s?ntomas nuevos o empeora. Patient Language: Slovenian Prescriptions: No Action ferrous sulfate [iron] 325 mg (65 mg iron) tablet 325 mg PO Q48H Qty: 30 0RF Rx Instructions: take every other day famotidine 10 mg tablet 10 mg PO DAILY Qty: 20 0RF Follow-up/Referrals: Ori Troncoso MD [Physician, Hematology] PHYSICIAN,CHAINSTITCH SEWING MACHINE OPERATOR [Primary Care Provider, Internal Medicine]
[2025-10-13 01:11] LABS: Troponin I < 0.012 ng/mL (0.000-0.034)
[2025-10-13 01:25] LABS: Hemoglobin 6.1 g/dL (12.0-15.0)
[2025-10-13 01:26] LABS: Anisocytosis 2+
[2025-10-13 01:27] LABS: Hypochromasia 1+
[2025-10-13 01:28] LABS: Ovalocytes 2+; Schistocytes None Seen
[2025-10-13] MEDS: SODIUM CHLORIDE 0.9% IV 250 ML 30 ML IV CONT (02:42)
[2025-10-13] MEDS: TUBING, BLOOD PLUM PUMP TUBING 1 EACH XX (03:34)
--- NOTE | 2025-10-13 04:48 | ECG_ITS ---
Test Date: 2025-10-13 04:55:14 Measurements Intervals [place] Rate: 98 P: 64 CO: 156 QRS: 39 QRSD: 77 T: 39 QT: 342 QTc: 438 Interpretive Statements SINUS RHYTHM WITH SINUS ARRHYTHMIA NORMAL ECG Compared to ECG 10/13/2025 00:11:36 HEART RATE HAS DECREASED Electronically Signed On 10-13-2025 08:38:40 LIBRARY ASSOCIATE by Jonathan Ro D.O.
[2025-10-13 05:31] LABS: Hematocrit 29.3 % (37.0-47.0); Hemoglobin 7.8 g/dL (12.0-15.0)
== END 2025-10-13 06:24 | disposition home or self-care (01) ==
PROVIDERS: Emergency Provider Student in an Organized Health Care Education/Training Program
DX: D64.9 Anemia, unspecified (principal); R00.0 Tachycardia, unspecified
CPT/HCPCS: 36415; 36430; 71045; 80053; 84484; 85014; 85018; 85025; 85055; 86850; 86900; 86901; 86923; 93005; 96360; 96361; 99285; J7050; P9016